=== PATIENT | male | born 1945 | race Caucasian/White ===

== ENCOUNTER → 2017-10-31 | Outpatient (CLI) | payer MEDICARE, OTHER ==
[~2017-10-31] MED LIST: ASPI-1188 PO; CARV12 PO; IOVERSOL 350 MG/ML 150 ML VIAL ONE; ISOS30TA6 PO; LISI-661 PO; PANT40TA25 PO; RANO500T3 PO; SIMV-261 PO; SODIUM CHLORIDE 0.9% 100 ML ONE
== END | disposition home or self-care (01) ==
LOC: RADMN 08:34
PROVIDERS: ATTEND Internal Medicine
DX: K76.89 Other specified diseases of liver (principal); N28.89 Other specified disorders of kidney and ureter; K42.9 Umbilical hernia without obstruction or gangrene; M79.89 Other specified soft tissue disorders; I10 Essential (primary) hypertension; I25.10 Atherosclerotic heart disease of native coronary artery without angina pectoris
CPT/HCPCS: 74177; J7050; Q9967

== ENCOUNTER → 2018-03-21 | Outpatient (CLI) | payer MEDICARE, OTHER ==
[~2018-03-21] MED LIST changes: -IOVERSOL 350 MG/ML 150 ML VIAL ONE; -SODIUM CHLORIDE 0.9% 100 ML ONE
== END | disposition home or self-care (01) ==
LOC: RADPV 12:21
PROVIDERS: ATTEND Internal Medicine
DX: I70.0 Atherosclerosis of aorta (principal); R07.9 Chest pain, unspecified

== ENCOUNTER → 2018-05-15 | Outpatient (CLI) | payer MEDICARE, OTHER | END | disposition home or self-care (01) | LOC: CARDMN 08:55 | PROVIDERS: ATTEND Internal Medicine Cardiovascular Disease | DX: R07.9 Chest pain, unspecified (principal) | CPT/HCPCS: 78452; 93017 ==

== ENCOUNTER → 2018-09-09 | Outpatient (CLI) | payer MEDICARE, OTHER | END | disposition home or self-care (01) | LOC: RADPV 11:54 | PROVIDERS: ATTEND Internal Medicine | DX: R22.30 Localized swelling, mass and lump, unspecified upper limb (principal); I51.7 Cardiomegaly; I70.0 Atherosclerosis of aorta ==

== ENCOUNTER → 2019-02-19 | Outpatient (CLI) | payer MEDICARE, OTHER ==
[~2019-02-19] MED LIST changes: -ASPI-1188 PO; +ASPI-1522 PO; +GADOBUTROL 1 MMOL/ML 10 ML VIAL IVP ONE
== END | disposition home or self-care (01) ==
LOC: RADMN 08:32
PROVIDERS: ATTEND Internal Medicine
DX: G31.9 Degenerative disease of nervous system, unspecified (principal); I67.82 Cerebral ischemia
CPT/HCPCS: 70544; 70553; A9585

== ENCOUNTER 2019-07-11 07:05 | Emergency (ER) | payer MEDICARE, OTHER ==
[~2019-07-11] VITALS: Ht 177.8 cm; Wt 113.6 kg
[~2019-07-11 07:05] MED LIST changes: -GADOBUTROL 1 MMOL/ML 10 ML VIAL IVP ONE
[2019-07-11] MEDS ORDERED: AMLO5TAB9 PO (07:38)
[2019-07-11] MEDS ORDERED: RABE20TA27 PO (07:38)
[2019-07-11] MEDS ORDERED: MELO-107 PO (07:38)
[2019-07-11] MEDS ORDERED: ROSU20TA23 PO (07:38)
[2019-07-11] MEDS ORDERED: NITR0.4T52 SL ×2 (07:38)
[2019-07-11] MEDS ORDERED: TAMS-13 PO (07:38)
[2019-07-11] MEDS ORDERED: BUSP10TA23 PO (07:38)
[2019-07-11] MEDS ORDERED: MONT4GRA2 PO (07:38)
[2019-07-11 07:58] LABS: BASOPHILS % (AUTO) 0.9 % (0.0-2.0); EOSINOPHILS % (AUTO) 4.5 % (1.0-6.0); HEMATOCRIT 39.3 % (41-53); HEMOGLOBIN 13.2 g/dL (13.5-17.5); LYMPHOCYTES % (AUTO) 15.1 % (22.0-44.0); MEAN CORPUSCULAR HEMOGLOBIN 31.3 pg (26.0-34.0); MEAN CORPUSCULAR HGB CONC 33.5 G/dL (31.0-37.0); MEAN CORPUSCULAR VOLUME 94 fL (80-100); MONOCYTES # (AUTO) 0.6 K/uL (0.1-1.0); MONOCYTES % (AUTO) 9.1 % (2.0-9.0); NEUTROPHILS # (AUTO) 4.7 K/uL (1.8-7.7); NEUTROPHILS % (AUTO) 70.4 % (40.0-70.0); PLATELET COUNT (AUTO) 227 K/uL (150-450); RED CELL DISTRIBUTION WIDTH 14.3 % (11.5-14.5)
[2019-07-11 08:06] LABS: ANION GAP 10 mmol/L (8-16); CALCIUM, TOTAL 8.9 mg/dL (8.8-10.5); CARBON DIOXIDE 26 mmol/L (22-29); CHLORIDE 105 mmol/L (98-107); CREATININE 1.09 mg/dL (0.60-1.30); GLUCOSE,RANDOM 109 mg/dL (70-110); POTASSIUM 4.2 mmol/L (3.5-5.1); SODIUM SERUM 141 mmol/L (136-145); UREA NITROGEN, BLOOD 18 mg/dL (7-18)
[2019-07-11 08:07] LABS: GLOMERULAR FILTR. RATE CALC > 60 mL/min (>60)
[2019-07-11 09:01] VITALS: BP 166/88
== END 2019-07-11 09:20 | disposition home or self-care (01) ==
LOC: EMS 07:07
DX: J06.9 Acute upper respiratory infection, unspecified (principal); I48.91 Unspecified atrial fibrillation; F41.9 Anxiety disorder, unspecified; I10 Essential (primary) hypertension; Z79.82 Long term (current) use of aspirin; Z79.899 Other long term (current) drug therapy; Z88.8 Allergy status to other drugs, medicaments and biological substances
CPT/HCPCS: 93005

== ENCOUNTER 2019-10-22 07:09 | Day surgery (SDC) | payer MEDICARE, OTHER ==
[~2019-10-22] VITALS: Ht 175.3 cm; Wt 112.7 kg
[~2019-10-22 07:09] MED LIST changes: +AMLO-257 PO; +BUSP10TA23 PO; -ISOS30TA6 PO; +MELO-107 PO; +MONT4GRA2 PO; +NITR0.4T52 SL; -PANT40TA25 PO; +RABE20TA27 PO; -RANO500T3 PO; +ROSU20TA23 PO; -SIMV-261 PO; +SODIUM CHLORIDE 0.9% 1,000 ML IV ONE; +SODIUM CHLORIDE 0.9% 1,000 ML ONE; +TAMS-13 PO
[2019-10-22] MEDS ORDERED: MONT10TA21 PO (07:45)
[2019-10-22] MEDS ORDERED: APIX5TAB PO (07:45)
[2019-10-22] MEDS ORDERED: ROSU20TA23 PO (07:45)
[2019-10-22] MEDS ORDERED: LISI-658 PO (07:45)
[2019-10-22 08:02] LABS: EOSINOPHILS % (AUTO) 3.4 % (1.0-6.0); HEMATOCRIT 38.6 % (41-53); LYMPHOCYTES # (AUTO) 1.1 K/uL (1.0-4.8); LYMPHOCYTES % (AUTO) 18.6 % (22.0-44.0); MEAN CORPUSCULAR HEMOGLOBIN 31.2 pg (26.0-34.0); MEAN CORPUSCULAR HGB CONC 33.6 G/dL (31.0-37.0); MEAN CORPUSCULAR VOLUME 93 fL (80-100); MONOCYTES # (AUTO) 0.6 K/uL (0.1-1.0); MONOCYTES % (AUTO) 10.1 % (2.0-9.0); NEUTROPHILS # (AUTO) 3.9 K/uL (1.8-7.7); NEUTROPHILS % (AUTO) 66.9 % (40.0-70.0); PLATELET COUNT (AUTO) 214 K/uL (150-450); RED BLOOD CELL COUNT(AUTO) 4.17 MIL/uL (4.50-5.90); RED CELL DISTRIBUTION WIDTH 14.3 % (11.5-14.5)
[2019-10-22 08:03] LABS: ANION GAP 7 mmol/L (8-16); CARBON DIOXIDE 27 mmol/L (22-29); CHLORIDE 106 mmol/L (98-107); CREATININE 1.03 mg/dL (0.60-1.30); GLUCOSE,RANDOM 116 mg/dL (70-110); POTASSIUM 4.4 mmol/L (3.5-5.1); SODIUM SERUM 140 mmol/L (136-145); UREA NITROGEN, BLOOD 18 mg/dL (7-18)
[2019-10-22 08:05] LABS: GLOMERULAR FILTR. RATE CALC > 60 mL/min (>60)
[2019-10-22 08:08] LABS: ALANINE AMINOTRANSFERASE 25 U/L (12-78); ALBUMIN 3.8 g/dL (3.4-5.0); ALKALINE PHOSPHATASE 74 U/L (46-116); ASPARTATE AMINOTRANSFERASE 14 U/L (15-37); TOTAL PROTEIN, SERUM 7.6 g/dL (6.4-8.2)
[2019-10-22 08:11] LABS: PROTHROMBIN TIME 10.8 SEC (9.4-11.6)
[2019-10-22] MEDS ORDERED: SODIUM BICARBONATE 50 MEQ/50 ML VIAL ONE (08:18)
[2019-10-22] MEDS ORDERED: HEPARIN SODIUM 1000 UNITS/NS 1,000 ML ONE (08:18)
[2019-10-22] MEDS ORDERED: IOHEXOL 300 MG/ML 150 ML VIAL ONE (08:18)
[2019-10-22] MEDS ORDERED: LIDOCAINE/PF 1% 30 ML VIAL ONE (08:18)
[2019-10-22 08:49] VITALS: BP 173/99
[2019-10-22] MEDS ORDERED: VERAPAMIL HCL 2.5 MG/ML 2 ML VIAL ONE (08:49)
[2019-10-22] MEDS ORDERED: NITROGLYCERIN 50 MG/D5% WATER 250 ML ONE (08:49)
[2019-10-22] MEDS ORDERED: FentaNYL CITRATE-PF 100 MCG/2 ML VIAL ONE (08:54)
[2019-10-22] MEDS ORDERED: MIDAZOLAM HCL 2 MG/2 ML VIAL ONE (08:54)
[2019-10-22] MEDS ORDERED: HEPARIN SODIUM 1000 UNITS/NS 1,000 ML IARTER ONE (09:41)
[2019-10-22] MEDS ORDERED: NITROGLYCERIN/D5W 50 MG/250 ML IV BOTTLE IARTER ONE (09:45)
[2019-10-22] MEDS ORDERED: LIDOCAINE 1% 30 ML/SOD BICARB 8.4% 4 ML SQ ONE (09:45)
[2019-10-22] MEDS ORDERED: IOHEXOL 300 MG/ML 150 ML VIAL IARTER ONE (09:45)
[2019-10-22] MEDS ORDERED: HEPARIN SODIUM,PORCINE 5,000 UNITS/ML VIAL IVP ONE (09:45)
[2019-10-22] MEDS ORDERED: FentaNYL CITRATE-PF 100 MCG/2 ML VIAL IVP ONE (09:45)
[2019-10-22] MEDS ORDERED: MIDAZOLAM HCL 2 MG/2 ML VIAL IVP ONE (09:45)
[2019-10-22] MEDS ORDERED: VERAPAMIL HCL 2.5 MG/ML 2 ML VIAL IARTER ONE (09:45)
[2019-10-22 09:59] VITALS: BP 191/104
== END 2019-10-22 14:30 | disposition home or self-care (01) ==
LOC: CATHLAB 07:09
PROVIDERS: ATTEND Internal Medicine Cardiovascular Disease
DX: R07.9 Chest pain, unspecified (principal); I25.10 Atherosclerotic heart disease of native coronary artery without angina pectoris; I10 Essential (primary) hypertension; E78.5 Hyperlipidemia, unspecified; G47.33 Obstructive sleep apnea (adult) (pediatric); D64.9 Anemia, unspecified; Z98.890 Other specified postprocedural states
CPT/HCPCS: 36415; 80053; 85025; 85610; 85730; 93005; 93458; 99152; 99153; J1644; J2250; J3010; J3490 ×4; J7030; Q9967; U0003

== ENCOUNTER 2020-08-18 18:39 | Emergency (ER) | payer MEDICARE, OTHER ==
[~2020-08-18] VITALS: Ht 177.8 cm; Wt 110.9 kg
[~2020-08-18 18:39] MED LIST changes: +APIX5TAB PO; -ASPI-1522 PO; +LISI-658 PO; -LISI-661 PO; -MELO-107 PO; +MONT-35 PO; -MONT4GRA2 PO; -RABE20TA27 PO; +RABE20TA30 PO; -ROSU20TA23 PO; +ROSU20TA73 PO; -SODIUM CHLORIDE 0.9% 1,000 ML IV ONE; -SODIUM CHLORIDE 0.9% 1,000 ML ONE
[2020-08-18] MEDS ORDERED: CYCLOBENZAPRINE HCL 10 MG TABLET PO ONE (19:15)
[2020-08-18] MEDS ORDERED: HYDROCODONE/ACETAMINOPHEN 5-325 MG TABLET PO ONE (19:15)
[2020-08-18 20:46] VITALS: BP 156/95
== END 2020-08-18 21:37 | disposition home or self-care (01) ==
LOC: EMS 18:40
DX: R51.9 Headache, unspecified (principal); F41.9 Anxiety disorder, unspecified; I48.91 Unspecified atrial fibrillation; I10 Essential (primary) hypertension; Z88.8 Allergy status to other drugs, medicaments and biological substances
CPT/HCPCS: 70450; 99284

== ENCOUNTER 2021-07-22 09:54 | Emergency (ER) | payer MEDICARE, OTHER ==
[~2021-07-22] VITALS: Ht 177.8 cm; Wt 113.6 kg
[2021-07-22] MEDS ORDERED: HYDR25TA2 PO (10:01)
[2021-07-22 10:56] VITALS: BP 142/86
== END 2021-07-22 12:23 | disposition home or self-care (01) ==
LOC: EMS 10:01
DX: R60.0 Localized edema (principal); I87.8 Other specified disorders of veins; I10 Essential (primary) hypertension; F41.9 Anxiety disorder, unspecified; I48.91 Unspecified atrial fibrillation; Z88.8 Allergy status to other drugs, medicaments and biological substances; Z79.899 Other long term (current) drug therapy
CPT/HCPCS: 93971; 99284; Z7502

== ENCOUNTER → 2022-07-04 | Outpatient (CLI) | payer OTHER ==
[~2022-07-04] MED LIST changes: +HYDR-4870 PO
== END | disposition home or self-care (01) ==
LOC: RADPV 10:27
PROVIDERS: ATTEND Chiropractor
DX: I08.2 Rheumatic disorders of both aortic and tricuspid valves (principal)
CPT/HCPCS: 93306